=== PATIENT | female | born 1940 | race Caucasian/White ===

== ENCOUNTER 2019-10-19 20:00 | Inpatient (IN) ==
[2019-10-19] MEDS ORDERED: SODIUM CHLORIDE 0.9% 500 ML IV STA (20:34)
[2019-10-19] MEDS ORDERED: MoRPHine SULFATE 2 MG/ML CARP ONE (20:42)
[2019-10-19] MEDS ORDERED: ONDANSETRON INJ 2 MG/ML 2 ML VIAL ONE (20:46)
[2019-10-19] MEDS ORDERED: MoRPHine SULFATE 2 MG/ML CARP IV STA (20:47)
[2019-10-19] MEDS ORDERED: ONDANSETRON INJ 2 MG/ML 2 ML VIAL IV STA (20:47)
[2019-10-19 20:48] LABS: Hematocrit (blood only) 39.7 % (37-47); Hemoglobin 13.6 g/dL (12.0-16.0); Mean Corpuscular Hemoglobin 31.4 pg (25-34); Mean Corpuscular Hgb Conc 34.3 g/dL (32-36); Mean Corpuscular Volume 91.7 fL (80-100); Mean Platelet Volume 9.4 fL (7.4-10.4); Platelet Count 226 K/uL (130-400); RDW Coefficient of Variation 12.6 % (11.5-14.5); RDW Standard Deviation 42.6 fL (36.4-46.3); Red Blood Count 4.33 M/uL (4.2-5.4); White Blood Count 10.57 K/uL (4.8-10.8)
[2019-10-19 21:12] LABS: Appearance Urine Clear (Clear); Bacteria Urine Automated Negative (Negative); Bilirubin Urine Negative (Negative); Blood Urine Negative (Negative); Cast Urine Automated 0 /lpf (0-5); Color Urine Yellow; Glucose Urine UA Negative (Negative); Ketones Urine 1+ (Negative); Leukocyte Esterase Urine Trace (Negative); Nitrite Urine Negative (Negative); Protein Urine Negative (Negative); RBC Urine Automated 0-4 /hpf (0-4); Specific Gravity Urine 1.015 (1.000-1.030); Urobilinogen Urine Negative (Negative); pH Urine 7.5 (4.5-7.5)
[2019-10-19 21:13] LABS: BUN Creatinine Ratio 17.3 (10-20); Calcium 9.6 mg/dl (8.5-10.1); Creatinine Clr Calc Pharmacy 54.5 ml/min; Est GFR (African American) 80.6; Est GFR (Non-African American) 69.6; Potassium 3.3 mmol/L (3.5-5.1)
[2019-10-19] MEDS ORDERED: SODIUM CHLORIDE 0.9% 1000ML 1,000 ML IV ONE (21:13)
[2019-10-19] MEDS: HYDROmorphone INJ 0.5 MG/0.5 ML SYR IV PRN ×3 (21:15→23:14)
--- NOTE | 2019-10-19 21:44 | CT Scan Report ---
CT SCAN OF THE ABDOMEN AND PELVIS WITHOUT IV CONTRAST CLINICAL HISTORY: Generalized abdominal pain. Vomiting. COMPARISON STUDY: No priors. TECHNIQUE: CT scan of the abdomen and pelvis is performed from the lung bases to the proximal femora. Images are reviewed in the axial, sagittal, and coronal planes. IV contrast was not administered for this examination as per the referring clinician. Note that the examination was performed in suboptim al fashion without oral and IV contrast. A dose lowering technique was utilized adhering to the princ i[place] of AVERY. CT DOSE: 365.59 mGy.cm FINDINGS: Lung bases: The heart is top normal in size and without pericardial effusion. There is a small hiatal hernia. Scarring/atelectasis is noted at the lung bases. No airspace consolidation or pleural effusi on is identified. There are scattered calcified granulomas. Liver: The unenhanced liver is normal in size, contour, and attenuation. There is mild intrahepatic b iliary ductal dilatation. Gallbladder: The gallbladder is markedly distended. There is gallbladder wall thickening and mild per icholecystic stranding. The common bile duct is dilated to the head of the pancreas and measures up t o 1.6 cm. Spleen: Normal in size and attenuation. There are numerous calcified splenic granulomas. 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 Pancreas: The unenhanced pancreas is grossly unremarkable. Adrenal glands: Unremarkable. Kidneys: The unenhanced kidneys demonstrate mild cortical atrophy and are without hydronephrosis. The re are least 2 nonobstructing left renal calculi measuring up to 6 mm. No right renal calculi are see n. There is no evidence of contour deforming renal mass lesion. Abdominal vasculature: There is advanced atherosclerotic calcification and ectasia of the abdominal a kika. Bowel: There is moderate colonic diverticulosis without CT evidence of acute diverticulitis. Fecal re tention is seen throughout the colon. No bowel obstruction is identified. There are duodenal divertic semaj. The appendix is not identified and reported surgically absent. Peritoneum: There is no intraperitoneal free air or abdominal ascites. Lymphadenopathy: None. Pelvic viscera: There is a small focus of gas within the bladder lumen. The bladder is distended but otherwise normal in appearance. The uterus and adnexa are normal as visualized. Skeletal structures: The skeletal structures are osteopenic. Mild to moderate lumbosacral spondylosis is observed. No lytic or blastic lesions are seen. IMPRESSION: 1. Suboptimal examination without oral and IV contrast. 2. Findings are highly concerning for acute cholecystitis. If clinically warranted right upper quadra nt ultrasound would be confirmatory. 3. There is intra and extrahepatic biliary ductal dilatation. 4. A small focus of gas within the bladder lumen may be related to instrumentation. Correlation with clinical findings and urinalysis will be required. 5. Moderate colonic diverticulosis without CT evidence of acute diverticulitis. 6. Left-sided nephrolithiasis. 7. Additional findings as above. ACT 112: Negative or not required by law. Electronically signed by: Cody Mcneill M.D. 10/19/2019 9:43 PM
[2019-10-19 22:01] LABS: Albumin Level 4.2 gm/dl (3.4-5.0)
[2019-10-19 22:04] LABS: Bilirubin Direct 0.7 mg/dl (0-0.2); Bilirubin,Total 1.2 mg/dl (0.2-1)
[2019-10-19] MEDS ORDERED: cefOXitin 2,000 MG/60 ML BAG IV STA (22:50)
--- NOTE | 2019-10-19 22:53 | Ultrasound Report ---
ULTRASOUND RIGHT UPPER QUADRANT ABDOMEN CLINICAL HISTORY: Generalized abdominal pain. Abnormal gallbladder seen by CT. COMPARISON STUDY: Abdominal CT performed the same day 10/19/2019. TECHNIQUE: Real-time, grayscale, and color flow sonography of the right upper quadrant of the abdomen was performed. Images are reviewed in the transverse and longitudinal planes. FINDINGS: Liver: The liver is normal in size and echotexture. There is intrahepatic biliary ductal dilatation. The main portal vein is patent. Gallbladder: The gallbladder is distended. The gallbladder wall is thickened and edematous measuring up to 7 mm and there is trace pericholecystic fluid. A sonographic Wilks's sign is likely present al though difficult assessed due to analgesia. Sludge is noted. No definite shadowing gallstones are chele ntified. The common bile duct is distended measuring up to 1.3 cm in diameter. No intraluminal fillin g defects are clearly identified. Pancreas: Visualized portions of the pancreatic head and body are normal in appearance. The splenic v ein is patent. Right kidney: Survey images of the right kidney demonstrate mild cortical atrophy. There is no hydron ephrosis. Ascites: None. IMPRESSION: 1. Sonographic findings are consistent with acute cholecystitis. This may be acalculous. Surgical con sultation is advised. 2. There is intra and extrahepatic biliary ductal dilatation. 3. The pancreatic duct is normal in caliber. ACT 112: Negative or not required by law. Electronically signed by: Cody Mcneill M.D. 10/19/2019 10:52 PM
--- NOTE | 2019-10-19 23:48 | History & Physical Report ---
Date of Service October 19, 2019 Assessment & Plan (1) Acute cholecystitis: Admit PCU IV Mefoxin given in the ED I will continue with IV Zosyn MRCP Surgery and GI consults NSS 20KCL @ 100 Pain and nausea control NPO Pepcid IV 20mg Q12 (2) Hypokalemia: 10meq K-rider x1 Then NSS with potassium overnight (3) HTN (hypertension): Likely secondary to pain Prn IV hydralazine Patient appeared anxious as well thus I ordered prn Ativan History of Present Illness 79 y/o female presented to the ED with acute onset of right upper and lower quadrant pain radiating to right back with associated N/V at 1700 this evening. She declines having F/C, chest pain, dysuria, hematemesis, SOB, or rigors. Patient had kidney stones in the past and felt this was the cuase of her pain. Primary Care Provider: Daniella Gill Allergies Allergy/AdvReac Type Severity Reaction Status Date / Time nitrofurantoin Allergy Severe Nausea Unverified 10/19/19 21:56 [From Macrobid] Home Medications Home Medications Medication Instructions Recorded Confirmed Type aspirin 500 mg PO Q6H PRN 10/19/19 10/19/19 History cholecalciferol (vitamin D3) 2,000 unit PO QAM 10/19/19 10/19/19 History [Vitamin D3] Past Med/Surg History Medical History History of kidney stones Luteal cystic ovary disease Family History Other No significant family history Social History Preferred Language: Armenian Feels Safe at Home: Yes Smoking Status: Never smoker Review of Systems Review of Systems: Constitutional- no fever; no weight loss Eyes- no acute visual changes ENT- no sinus drainage; no pharyngitis Pulmonary- no cough, no wheezing, no shortness of breath Cardiac- no chest pain, no palpitations, no orthopnea, no dependent edema GI- As in HPI - no dysuria, no hematuria Musculoskeletal- no arthralgias, no myalgias Derm- no rashes, no new skin lesions. Hematologic- no unusual bruising, no unusual bleeding Lymphatics- no adenopathy Endocrine- no polyuria or polydipsia; no heat or cold intolerance Neuro- no headaches, no focal neurologic symptoms Psych- no anxiety, no depression Physical Exam Physical Exam: General- adult female in mod distress from right upper quadrant pain. Nurse giving IV Dilaudid just now. Head- atraumatic Eyes- PERRL, EOMI, anicteric ENT- oropharynx clear Neck- supple, no JVD, no adenopathy, no thyromegaly. Lungs- CTA b/l no R/R/W. Heart- regular rhythm; no murmur, no gallop, no rub appreciated Abdomen- Tenderness to palpation RUQ, + BS, no rebound. Extremities- no pretibial edema, no calf tenderness; peripheral pulses intact Neuro- alert, oriented x 3; PERRL, EOMI; licensing analyst II-XII grossly intact, non-focal. Skin- warm & dry Results & Data Vital Signs (Past 12 Hours) Vital Signs Temp Pulse Resp BP Pulse Ox 10/19/19 23:20 83 19 167/95 H 94 10/19/19 22:50 98 10/19/19 22:49 70 17 185/89 H 99 10/19/19 22:00 74 16 181/99 H 93 10/19/19 21:41 69 22 175/92 H 98 10/19/19 21:38 91 H 12 10/19/19 21:10 73 19 173/99 H 97 10/19/19 21:01 68 30 H 98 10/19/19 21:00 69 28 H 184/96 H 98 10/19/19 20:53 64 21 193/101 H 98 10/19/19 20:51 67 22 97 10/19/19 20:49 71 17 202/105 H 96 10/19/19 20:02 36.6 C 61 16 180/90 H 96 Laboratory Results Laboratory Results WBC 10.57 K/uL (4.8-10.8) 10/19/19 20:29 RBC 4.33 M/uL (4.2-5.4) 10/19/19 20:29 Hgb 13.6 g/dL (12.0-16.0) 10/19/19 20:29 Hct 39.7 % (37-47) 10/19/19 20:29 MCV 91.7 fL (80-100) 10/19/19 20: MCH 31.4 pg (25-34) 10/19/19: MCHC 34.3 g/dL (32-36) 10/19/19: RDW Std Deviation 42.6 fL (36.4-46.3) 10/19/19 RDW Coeff of Vasquez 12.6 % (11.5-14.5) 10/19/19 Plt Count 226 K/uL (130-400) 10/19/19 MPV 9.4 fL (7.4-10.4) 10/19/19: Sodium 138 mmol/L (136-145) 10/19/19 Potassium 3.3 mmol/L (3.5-5.1) L 10/19/19 Chloride 101 mmol/L (98-107) 10/19/19: Carbon Dioxide 29 mmol/L (21-32) 10/19/19: Anion Gap 8.0 (3-11) 10/19/19 BUN 14 mg/dl (7-18) 10/19/19: Creatinine 0.81 mg/dl (0.6-1.2) 10/19/19 Est Cr Clr Drug Dosing 54.5 ml/min 10/19/19: Est GFR ( Amer) 80.6 10/19/19: Est GFR (Non-Af Amer) 69.6 10/19/19: BUN/Creatinine Ratio 17.3 (10-20) 10/19/19: Glucose 193 mg/dl (70-99) H 10/19/19: Calcium 9.6 mg/dl (8.5-10.1) 10/19/19: Total Bilirubin 1.2 mg/dl (0.2-1) H 10/19/19: Total Bilirubin Cancelled 10/19/19: Direct Bilirubin 0.7 mg/dl (0-0.2) H 10/19/19: Direct Bilirubin Cancelled 10/19/19: AST 153 U/L (15-37) H 10/19/19: AST Cancelled 10/19/19 20: ALT 69 U/L (12-78) 10/19/19 20: ALT Cancelled 10/19/19 20: Alkaline Phosphatase 133 U/L (45-117) H 10/19/19 20: Alkaline Phosphatase Cancelled 10/19/19 20: Total Protein 8.0 gm/dl (6.4-8.2) 10/19/19: Total Protein Cancelled 10/19/19 20: Albumin 4.2 gm/dl (3.4-5.0) 10/19/19 20: Albumin Cancelled 10/19/19 20: Lipase 250 U/L (73-393) 10/19/19 Lipase Cancelled 10/19/19 20: Urine Color Yellow 10/19/19 20: Urine Appearance Clear (Clear) 10/19/19: Urine pH 7.5 (4.5-7.5) 10/19/19: Ur Specific [place] 1.015 (1.000-1.030) 10/19/19 20: Urine Protein Negative (Negative) 10/19/19 20: Urine Glucose (UA) Negative (Negative) 10/19/19 Urine Ketones 1+ (Negative) H 10/19/19 Urine Blood Negative (Negative) 10/19/19 20: Urine Nitrite Negative (Negative) 10/19/19: Urine Bilirubin Negative (Negative) 10/19/19: Urine Urobilinogen Negative (Negative) 10/19/19: Ur Leukocyte Esterase Trace (Negative) H 10/19/19 20: Urine WBC (Auto) 5-10 /hpf (0-5) H 10/19/19 20: Urine RBC (Auto) 0-4 /hpf (0-4) 10/19/19 20: U Hyaline Cast (Auto) 0 /lpf (0-5) 10/19/19 20: U Epithel Cells (Auto) 10-20 /lpf (0-5) H 10/19/19 20: Urine Bacteria (Auto) Negative (Negative) 10/19/19 20: Diagnostic Findings [facility], [place] [phone] CT Scan Report Patient: CINTIA CHOPRAAdmit Date: 10/19/19 MR#: [id number]: [id number] [place] [address] Acct ID:[id number]: Date: 1940[facility] Zip: [place] [id number] Age: 79Location: ED Sex: F Room/Bed: Att Phy:Diagnosis: VOMITING, ABD PAIN, LOWER BACK PAIN Rama Phy: Kavin Gill D.O.Service Date: 10/19/19 [facility] Phy:Interpreting Phy: Cody Mcneill MD Admit Phy: Ordering Phy: Kavin Chávez MD cc: ~ CT SCAN OF THE ABDOMEN AND PELVIS WITHOUT IV CONTRAST CLINICAL HISTORY: Generalized abdominal pain. Vomiting. COMPARISON STUDY: No priors. TECHNIQUE: CT scan of the abdomen and pelvis is performed from the lung bases to the proximal femora. Images are reviewed in the axial, sagittal, and coronal planes. IV contrast was not administered for this examination as per the referring clinician. Note that the examination was performed in suboptimal fashion without oral and IV contrast. A dose lowering technique was utilized adhering to the principles of ALARA. CT DOSE: 365.59 mGy.cm FINDINGS: Lung bases: The heart is top normal in size and without pericardial effusion. There is a small hiatal hernia. Scarring/atelectasis is noted at the lung bases. No airspace consolidation or pleural effusion is identified. There are scattered calcified granulomas. Liver: The unenhanced liver is normal in size, contour, and attenuation. There is mild intrahepatic biliary ductal dilatation. Gallbladder: The gallbladder is markedly distended. There is gallbladder wall thickening and mild pericholecystic stranding. The common bile duct is dilated to the head of the pancreas and measures up to 1.6 cm. Spleen: Normal in size and attenuation. There are numerous calcified splenic granulomas. 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 Pancreas: The unenhanced pancreas is grossly unremarkable. Adrenal glands: Unremarkable. Kidneys: The unenhanced kidneys demonstrate mild cortical atrophy and are without hydronephrosis. There are least 2 nonobstructing left renal calculi measuring up to 6 mm. No right renal calculi are seen. There is no evidence of contour deforming renal mass lesion. Abdominal vasculature: There is advanced atherosclerotic calcification and ectasia of the abdominal aorta. Bowel: There is moderate colonic diverticulosis without CT evidence of acute diverticulitis. Fecal retention is seen throughout the colon. No bowel obstruction is identified. There are duodenal diverticula. The appendix is not identified and reported surgically absent. Peritoneum: There is no intraperitoneal free air or abdominal ascites. Lymphadenopathy: None. Pelvic viscera: There is a small focus of gas within the bladder lumen. The bladder is distended but otherwise normal in appearance. The uterus and adnexa are normal as visualized. Skeletal structures: The skeletal structures are osteopenic. Mild to moderate lumbosacral spondylosis is observed. No lytic or blastic lesions are seen. IMPRESSION: 1. Suboptimal examination without oral and IV contrast. 2. Findings are highly concerning for acute cholecystitis. If clinically warranted right upper quadrant ultrasound would be confirmatory. 3. There is intra and extrahepatic biliary ductal dilatation. 4. A small focus of gas within the bladder lumen may be related to instrumentation. Correlation with clinical findings and urinalysis will be required. 5. Moderate colonic diverticulosis without CT evidence of acute diverticulitis. 6. Left-sided nephrolithiasis. 7. Additional findings as above. ACT 112: Negative or not required by law. Electronically signed by: Cody Mcneill M.D. 10/19/2019 9:43 PM Dictated: 10/19/192134 Transcribed: 10/19/192134 [place], [place] [phone] Ultrasound Report Patient: CINTIA CHOPRAAdmit Date: 10/19/19 MR#: [id number]: [address] [place] [address] Acct ID:[id number]: Date: [address] [place] [address] Zip: [place] [address] Age: 79Location: ED Sex: F Room/Bed: Att Phy:Diagnosis: VOMITING, ABD PAIN, LOWER BACK PAIN Rama Phy: Daniella Gill., DOService Date: 10/19/19 Fam Phy:Interpreting Phy: Cody Mcneill MD Admit Phy: Ordering Phy: Kavin Chávez MD cc: ~ ULTRASOUND RIGHT UPPER QUADRANT ABDOMEN CLINICAL HISTORY: Generalized abdominal pain. Abnormal gallbladder seen by CT. COMPARISON STUDY: Abdominal CT performed the same day 10/19/2019. TECHNIQUE: Real-time, grayscale, and color flow sonography of the right upper quadrant of the abdomen was performed. Images are reviewed in the transverse and longitudinal planes. FINDINGS: Liver: The liver is normal in size and echotexture. There is intrahepatic biliary ductal dilatation. The main portal vein is patent. Gallbladder: The gallbladder is distended. The gallbladder wall is thickened and edematous measuring up to 7 mm and there is trace pericholecystic fluid. A sonographic Wilks's sign is likely present although difficult assessed due to analgesia. Sludge is noted. No definite shadowing gallstones are identified. The common bile duct is distended measuring up to 1.3 cm in diameter. No intraluminal filling defects are clearly identified. Pancreas: Visualized portions of the pancreatic head and body are normal in appearance. The splenic vein is patent. Right kidney: Survey images of the right kidney demonstrate mild cortical atrophy. There is no hydronephrosis. Ascites: None. IMPRESSION: 1. Sonographic findings are consistent with acute cholecystitis. This may be acalculous. Surgical consultation is advised. 2. There is intra and extrahepatic biliary ductal dilatation. 3. The pancreatic duct is normal in caliber. ACT 112: Negative or not required by law. Electronically signed by: Cody Mcneill M.D. 10/19/2019 10:52 PM Dictated: 10/19/192247 Transcribed: 10/19/192247 Code Status & VTE Plan VTE Prophylaxis Plan VTE Prophylaxis will be ordered: Yes PG Care Time/CCT Total # of Minutes Spent Total Time Spent: 60 Total Time Spent with Patient: Total time spent is greater than 50% in coordination of care (as documented) at patient's floor/unit and/or counseling patient: Coding Level of Care Code 15285 Initial Inpt Care Lvl 3 Diagnoses Acute cholecystitis K81.0 Hypokalemia E87.6 HTN (hypertension) I10
[2019-10-20] MEDS: HYDROmorphone INJ 0.5 MG/0.5 ML SYR IV PRN ×3 (00:12→06:09)
[2019-10-20] MEDS ORDERED: LORazepam 0.5 MG/1 ML VIAL IV PRN (00:42)
[2019-10-20] MEDS ORDERED: POTASSIUM CHLORIDE / WTR 10 MEQ/100 ML PLCT IV ONE (00:42)
[2019-10-20] MEDS ORDERED: PIPERACILL/TAZOBAC CONSULT ACTIVE PRN (00:42)
[2019-10-20] MEDS ORDERED: HYDROmorphone INJ 1 MG/ML SYRINGE IV PRN ×2 (00:42→16:00)
[2019-10-20] MEDS ORDERED: HydrALAZINE HCL 20 MG/ML VIAL IV PRN (00:42)
[2019-10-20] MEDS ORDERED: ONDANSETRON INJ 2 MG/ML 2 ML VIAL IV PRN ×2 (00:42→16:00)
--- NOTE | 2019-10-20 00:45 | Emergency Department Note ---
Entered by Lady Frias acting as a scribe for Kavin Chávez MD ED Provider Note CHIEF COMPLAINT: right flank pain HISTORY OF PRESENT ILLNESS: The patient is a 79 year old F who presents to the Emergency Room with complaints of worsening right flank left that started this morning. She notes that her flank pain started at 3am, this morning. She states that her pain radiates to her entire abdomen. She notes that she started to vomit, 4 hours ago. She adds that she is currently vomiting bile. She states that she has a history of a ruptured corpus luteal cyst and a kidney stone. She adds that her kidney stone was 2 years ago. She notes that she is currently taking Vitamin D3 daily. She adds that she regularly sees her PCP, Dr. Glil, in [place], [place]. Pt denies LOC, headache, fevers, chills, diaphoresis, visual changes, neck pain, chest pain, breathing difficulties, melena, hematochezia, urinary symptoms, numbness, weakness, lymphadenopathy, rash, or other complaints. REVIEW OF SYSTEMS: See HPI for pertinent positives and negatives. A total of ten systems were reviewed and were otherwise negative. PMHx/PSHx: ruptured corpus luteal cyst and kidney stone SOCIAL HISTORY: Patient lives at home. PHYSICAL EXAM: GENERAL: Awake, alert, uncomfortable-appearing, in no distress HENT: Normocephalic, atraumatic. Oropharynx unremarkable. EYES: PERRL. Normal conjunctiva. Sclera non-icteric. NECK: Inspection normal. Non-tender. Supple. No nuchal rigidity. FROM. No masses. RESPIRATORY: Clear to auscultation. No wheezes. No rales. Normal respiratory effort. CARDIAC: Normal rate. Normal rhythm. No murmurs. No rubs. Extremities warm and well perfused. Pulses equal. No JVD. GI: Soft, non-distended. Generalized tenderness to palpation. No rebound or guarding. No masses. RECTAL: Deferred. MUSCULOSKELETAL: Atraumatic. Chest examination reveals no tenderness. The back is symmetrical on inspection without obvious abnormality. There is left CVA tenderness to palpation. No joint edema. LOWER EXTREMITIES: Calves are equal size bilaterally and non-tender. No edema. No discoloration. NEURO: Normal sensorium. No sensory or motor deficits noted. SKIN: No rash or jaundice noted. EMERGENCY DEPARTMENT COURSE: 2111: The patient was evaluated in room B12B, and a complete history and physical examination were performed. 2153: I re-checked the patient. On repeat abdominal exam, the patient is still diffusely tender. 2251: I reviewed the patient's case with Dr. Vogt, [facility] Hospitalist. He will evaluate the patient for further management. 2254: I updated the patient on the plan for hospitalization. MEDICAL DECISION MAKING: Prior records in the EMR. Triage Nursing notes reviewed and agree them. Additional history obtained from patient's . The patient's history was concerning for abdominal pain. Differential diagnosis: Etiologies such as biliary pathology,appendicitis, diverticulitis, PUD, UTI, pancreatitis, obstruction, mesenteric ischemia, aortic pathology, infections, inflammatory bowel disease, renal colic, as well as others were entertained. Physical examination findings: As above. ER treatment provided: IV Zofran IV normal saline IV morphine IV Dilaudid On reassessment the patient felt better. IV Mefoxin Diagnostics interpreted by me: The labs revealed an unremarkable CBC. Chemistry panel revealed subtle hypokalemia and hyperglycemia. LFTs were concerning as they were elevated a nonobstructive pattern. Imaging studies: CT scan of the abdomen pelvis was concerning for cholecystitis. Ultrasound imaging was recommended by radiology. This was performed and was concerning for acute cholecystitis. Consultation: A consultation was placed with the not any hospitalist. The case was discussed and diagnostics were reviewed. The patient was evaluated in the ER for further treatment. IMPRESSION: acute cholecystitis Generalized abdominal pain Elevated LFTs PLAN: Admitted as inpatient. The scribe's documentation has been prepared under my direction and personally reviewed by me in its entirety. I confirm that the note above accurately r eflects all work, treatment, procedures, and medical decision making performed by me. Impression & Plan Acute cholecystitis Past Med/Surg History Medical History History of kidney stones Luteal cystic ovary disease Family History Other No significant family history Social History Preferred Language: Thai Feels Safe at Home: Yes Smoking Status: Never smoker Results & Data Vital Signs Vital Signs - 24 hr 10/19/19 20:02 10/19/19 20:49 10/19/19 20:51 Temperature 36.6 C Temperature Source Oral Pulse Rate 61 71 67 Pulse Rate from SpO2 Sensor 70 68 Respiratory Rate 16 17 22 Respiratory Effort / Characteristics Non-Labored Spontaneous Respiratory Depth Normal Respiratory Pattern Regular Blood Pressure 180/90 H 202/105 H Blood Pressure Mean 120 133 Blood Pressure Position Sitting Pulse Oximetry 96 96 97 Oxygen Delivery Method Room Air Oxygen Flow Rate Sepsis Recent Fever Within 48 Hours No Sepsis Action Taken by Nursing No Action Required 10/19/19 20:53 10/19/19 21:00 10/19/19 21:01 Temperature Temperature Source Pulse Rate 64 69 68 Pulse Rate from SpO2 Sensor 64 69 69 Respiratory Rate 21 28 H 30 H Respiratory Effort / Characteristics Respiratory Depth Respiratory Pattern Blood Pressure 193/101 H 184/96 H Blood Pressure Mean 131 132 Blood Pressure Position Pulse Oximetry 98 98 98 Oxygen Delivery Method Oxygen Flow Rate Sepsis Recent Fever Within 48 Hours Sepsis Action Taken by Nursing 10/19/19 21:10 10/19/19 21:38 10/19/19 21:41 Temperature Temperature Source Pulse Rate 73 91 H 69 Pulse Rate from SpO2 Sensor 72 69 Respiratory Rate 19 12 22 Respiratory Effort / Characteristics Respiratory Depth Respiratory Pattern Blood Pressure 173/99 H 175/92 H Blood Pressure Mean 129 129 Blood Pressure Position Pulse Oximetry 97 98 Oxygen Delivery Method Oxygen Flow Rate Sepsis Recent Fever Within 48 Hours Sepsis Action Taken by Nursing 10/19/19 22:00 10/19/19 22:49 10/19/19 22:50 Temperature Temperature Source Pulse Rate 74 70 Pulse Rate from SpO2 Sensor 76 71 Respiratory Rate 16 17 Respiratory Effort / Characteristics Respiratory Depth Respiratory Pattern Blood Pressure 181/99 H 185/89 H Blood Pressure Mean 105 113 Blood Pressure Position Pulse Oximetry 93 99 98 Oxygen Delivery Method Nasal Cannula Oxygen Flow Rate 2 Sepsis Recent Fever Within 48 Hours Sepsis Action Taken by Nursing 10/19/19 23:20 Temperature Temperature Source Pulse Rate 83 Pulse Rate from SpO2 Sensor 85 Respiratory Rate 19 Respiratory Effort / Characteristics Respiratory Depth Respiratory Pattern Blood Pressure 167/95 H Blood Pressure Mean 142 Blood Pressure Position Pulse Oximetry 94 Oxygen Delivery Method Oxygen Flow Rate Sepsis Recent Fever Within 48 Hours Sepsis Action Taken by Detention Medications Current Medication List: was personally reviewed by me Laboratory Data Attestation: I reviewed the patient's lab results. Result diagrams: 10/19/19 20:29 10/19/19 20:29 Lab Results 10/19/19 10/19/19 10/19/19 Range/Units 20:29 20:29 20:29 WBC 10.57 (4.8-10.8) K/uL RBC 4.33 (4.2-5.4) M/uL Hgb 13.6 (12.0-16.0) g/dL Hct 39.7 (37-47) % MCV 91.7 (80-100) fL MCH 31.4 (25-34) pg MCHC 34.3 (32-36) g/dL RDW Std Deviation 42.6 (36.4-46.3) fL RDW Coeff of Vasquez 12.6 (11.5-14.5) % Plt Count 226 (130-400) K/uL MPV 9.4 (7.4-10.4) fL Sodium 138 (136-145) mmol/L Potassium 3.3 L (3.5-5.1) mmol/L Chloride 101 (98-107) mmol/L Carbon Dioxide 29 (21-32) mmol/L Anion Gap 8.0 (3-11) BUN 14 (7-18) mg/dl Creatinine 0.81 (0.6-1.2) mg/dl Est Cr Clr Drug Dosing 54.5 ml/min Est GFR ( Amer) 80.6 Est GFR (Non-Af Amer) 69.6 BUN/Creatinine Ratio 17.3 (10-20) Glucose 193 H (70-99) mg/dl Calcium 9.6 (8.5-10.1) mg/dl Total Bilirubin 1.2 H (0.2-1) mg/dl Direct Bilirubin 0.7 H (0-0.2) mg/dl AST 153 H (15-37) U/L ALT 69 (12-78) U/L Alkaline Phosphatase 133 H (45-117) U/L Total Protein 8.0 (6.4-8.2) gm/dl Albumin 4.2 (3.4-5.0) gm/dl Lipase 250 (73-393) U/L Urine Color Yellow Urine Appearance Clear (Clear) Urine pH 7.5 (4.5-7.5) Ur Specific [place] 1.015 (1.000-1.030) Urine Protein Negative (Negative) Urine Glucose (UA) Negative (Negative) Urine Ketones 1+ H (Negative) Urine Blood Negative (Negative) Urine Nitrite Negative (Negative) Urine Bilirubin Negative (Negative) Urine Urobilinogen Negative (Negative) Ur Leukocyte Esterase Trace H (Negative) Urine WBC (Auto) 5-10 H (0-5) /hpf Urine RBC (Auto) 0-4 (0-4) /hpf U Hyaline Cast (Auto) 0 (0-5) /lpf U Epithel Cells (Auto) 10-20 H (0-5) /lpf Urine Bacteria (Auto) Negative (Negative) 10/19/19 Range/Units 20:29 WBC (4.8-10.8) K/uL RBC (4.2-5.4) M/uL Hgb (12.0-16.0) g/dL Hct (37-47) % MCV (80-100) fL MCH (25-34) pg MCHC (32-36) g/dL RDW Std Deviation (36.4-46.3) fL RDW Coeff of Vasquez (11.5-14.5) % Plt Count (130-400) K/uL MPV (7.4-10.4) fL Sodium (136-145) mmol/L Potassium (3.5-5.1) mmol/L Chloride (98-107) mmol/L Carbon Dioxide (21-32) mmol/L Anion Gap (3-11) BUN (7-18) mg/dl Creatinine (0.6-1.2) mg/dl Est Cr Clr Drug Dosing ml/min Est GFR ( Amer) Est GFR (Non-Af Amer) BUN/Creatinine Ratio (10-20) Glucose (70-99) mg/dl Calcium (8.5-10.1) mg/dl Total Bilirubin Cancelled (0.2-1) mg/dl Direct Bilirubin Cancelled (0-0.2) mg/dl AST Cancelled (15-37) U/L ALT Cancelled (12-78) U/L Alkaline Phosphatase Cancelled (45-117) U/L Total Protein Cancelled (6.4-8.2) gm/dl Albumin Cancelled (3.4-5.0) gm/dl Lipase Cancelled (73-393) U/L Urine Color Urine Appearance (Clear) Urine pH (4.5-7.5) Ur Specific [place] (1.000-1.030) Urine Protein (Negative) Urine Glucose (UA) (Negative) Urine Ketones (Negative) Urine Blood (Negative) Urine Nitrite (Negative) Urine Bilirubin (Negative) Urine Urobilinogen (Negative) Ur Leukocyte Esterase (Negative) Urine WBC (Auto) (0-5) /hpf Urine RBC (Auto) (0-4) /hpf U Hyaline Cast (Auto) (0-5) /lpf U Epithel Cells (Auto) (0-5) /lpf Urine Bacteria (Auto) (Negative) Administered Medications Discontinued Medications Hydromorphone HCl (Dilaudid) 0.5 mg IV Q15M PRN PRN Reason: Pain Stop: 11/02/19 21:12 Last Admin: 10/20/19 00:12 Dose: 0.5 mg Documented by: [id number] Admin: 10/19/19 23:14 Dose: 0.5 mg Documented by: [id number] Admin: 10/19/19 21:39 Dose: 0.5 mg Documented by: [id number] Admin: 10/19/19 21:15 Dose: 0.5 mg Documented by: [id number] Sodium Chloride (Nss) 500 mls @ 999 mls/hr IV .Q31M STA Stop: 10/19/19 21:04 Last Infusion: 10/19/19 21:11 Dose: 0 mls/hr Documented by: [id number] Admin: 10/19/19 20:43 Dose: 999 mls/hr Documented by: [id number] Sodium Chloride (Nss 1000ml) 1,000 mls @ 999 mls/hr IV .Q1H1M ONE Stop: 10/19/19 22:13 Last Infusion: 10/19/19 22:18 Dose: 0 mls/hr Documented by: [id number] Admin: 10/19/19 21:15 Dose: 999 mls/hr Documented by: [id number] Cefoxitin Sodium (Mefoxin) 2,000 mg in 60 mls @ 100 mls/hr IV NOW STA Stop: 10/19/19 23:25 Last Infusion: 10/19/19 23:33 Dose: 0 mls/hr Documented by: [id number] Admin: 10/19/19 22:58 Dose: 100 mls/hr Documented by: [id number] Morphine Sulfate (Morphine Sulfate) Confirm Administered Dose 2 mg .ROUTE .STK- MED ONE Stop: 10/19/19 20:43 Last Admin: 10/19/19 20:43 Dose: 2 mg Documented by: [id number] Morphine Sulfate (Morphine Sulfate) 2 mg IV NOW STA Stop: 10/19/19 20:48 Last Admin: 10/19/19 20:50 Dose: Not Given Documented by: [id number] Ondansetron HCl (Zofran) Confirm Administered Dose 4 mg .ROUTE .STK-MED ONE Stop: 10/19/19 20:47 Last Admin: 10/19/19 20:47 Dose: 4 mg Documented by: [id number] Ondansetron HCl (Zofran) 4 mg IV NOW STA Stop: 10/19/19 20:48 Last Admin: 10/19/19 20:50 Dose: Not Given Documented by: [id number] Imaging Data Radiologist's Impression: Radiology results as stated below per my review and the radiologist's interpretation: CT SCAN OF THE ABDOMEN AND PELVIS WITHOUT IV CONTRAST CLINICAL HISTORY: Generalized abdominal pain. Vomiting. COMPARISON STUDY: No priors. TECHNIQUE: CT scan of the abdomen and pelvis is performed from the lung bases to the proximal femora. Images are reviewed in the axial, sagittal, and coronal planes. IV contrast was not administered for this examination as per the referring clinician. Note that the examination was performed in suboptimal fashion without oral and IV contrast. A dose lowering technique was utilized adhering to the principles of ALARA. CT DOSE: 365.59 mGy.cm FINDINGS: Lung bases: The heart is top normal in size and without pericardial effusion. There is a small hiatal hernia. Scarring/atelectasis is noted at the lung bases. No airspace consolidation or pleural effusion is identified. There are scattered calcified granulomas. Liver: The unenhanced liver is normal in size, contour, and attenuation. There is mild intrahepatic biliary ductal dilatation. Gallbladder: The gallbladder is markedly distended. There is gallbladder wall thickening and mild pericholecystic stranding. The common bile duct is dilated to the head of the pancreas and measures up to 1.6 cm. Spleen: Normal in size and attenuation. There are numerous calcified splenic granulomas. 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 Pancreas: The unenhanced pancreas is grossly unremarkable. Adrenal glands: Unremarkable. Kidneys: The unenhanced kidneys demonstrate mild cortical atrophy and are wi thout hydronephrosis. There are least 2 nonobstructing left renal calculi measuring up to 6 mm. No right renal calculi are seen. There is no evidence of contour deforming renal mass lesion. Abdominal vasculature: There is advanced atherosclerotic calcification and ectasia of the abdominal aorta. Bowel: There is moderate colonic diverticulosis without CT evidence of acute diverticulitis. Fecal retention is seen throughout the colon. No bowel obstruction is identified. There are duodenal diverticula. The appendix is not identified and reported surgically absent. Peritoneum: There is no intraperitoneal free air or abdominal ascites. Lymphadenopathy: None. Pelvic viscera: There is a small focus of gas within the bladder lumen. The bladder is distended but otherwise normal in appearance. The uterus and adnexa are normal as visualized. Skeletal structures: The skeletal structures are osteopenic. Mild to moderate lumbosacral spondylosis is observed. No lytic or blastic lesions are seen. IMPRESSION: 1. Suboptimal examination without oral and IV contrast. 2. Findings are highly concerning for acute cholecystitis. If clinically warranted right upper quadrant ultrasound would be confirmatory. 3. There is intra and extrahepatic biliary ductal dilatation. 4. A small focus of gas within the bladder lumen may be related to instrumentation. Correlation with clinical findings and urinalysis will be required. 5. Moderate colonic diverticulosis without CT evidence of acute diverticulitis. 6. Left-sided nephrolithiasis. 7. Additional findings as above. ACT 112: Negative or not required by law. Electronically signed by: Cody Mcneill M.D. 10/19/2019 9:43 PM ULTRASOUND RIGHT UPPER QUADRANT ABDOMEN CLINICAL HISTORY: Generalized abdominal pain. Abnormal gallbladder seen by CT. COMPARISON STUDY: Abdominal CT performed the same day 10/19/2019. TECHNIQUE: Real-time, grayscale, and color flow sonography of the right upper quadrant of the abdomen was performed. Images are reviewed in the transverse and longitudinal planes. FINDINGS: Liver: The liver is normal in size and echotexture. There is intrahepatic biliary ductal dilatation. The main portal vein is patent. Gallbladder: The gallbladder is distended. The gallbladder wall is thickened and edematous measuring up to 7 mm and there is trace pericholecystic fluid. A sono graphic Wilks's sign is likely present although difficult assessed due to analgesia. Sludge is noted. No definite shadowing gallstones are identified. The common bile duct is distended measuring up to 1.3 cm in diameter. No intraluminal filling defects are clearly identified. Pancreas: Visualized portions of the pancreatic head and body are normal in appearance. The splenic vein is patent. Right kidney: Survey images of the right kidney demonstrate mild cortical atrophy. There is no hydronephrosis. Ascites: None. IMPRESSION: 1. Sonographic findings are consistent with acute cholecystitis. This may be acalculous. Surgical consultation is advised. 2. There is intra and extrahepatic biliary ductal dilatation. 3. The pancreatic duct is normal in caliber. ACT 112: Negative or not required by law. Electronically signed by: Cody Mcneill M.D. 10/19/2019 10:52 PM Blood Pressure Blood Pressure Findings: Elevated blood pressure Blood Pressure Disposition: further management by hospitalist Discharge Plan Visit Data *Final* Discharge Date/Time: 10/20/19 00:22 Chief Complaint: Flank Pain Stated Complaint: VOMITING, ABD PAIN, LOWER BACK PAIN ED Provider: Kavin Chávez Discharge Problem: Acute cholecystitis Patient Disposition: Admitted As Inpatient Discharge Instructions Interventions: ED Discharge Assessment Last Done: 10/20/19 00:22 The scribe's documentation has been prepared under my direction and personally reviewed by me in its entirety. I confirm that the note above accurately reflects all work, treatment, procedures, and medical decision making performed by me.
[2019-10-20] MEDS: KETOROLAC TROMETHAMINE 15 MG/ML VIAL IV PRN ×2 (01:00→07:47)
[2019-10-20] MEDS: FAMOTIDINE 20 MG in SYRINGE 3 ML IV SCH ×3 (01:11→20:32)
[2019-10-20] MEDS: NSS + 20MEQ KCL 20 MEQ/1,000 ML BAG IV SCH ×2 (01:12→13:20)
[2019-10-20] MEDS: PIPERACILLIN/TAZOBACTAM 3.375 GM in DEXTROSE 5% 100 ML IV SCH ×3 (03:57→20:31)
[2019-10-20 06:38] LABS: Hemoglobin 13.5 g/dL (12.0-16.0); Mean Corpuscular Hgb Conc 34.6 g/dL (32-36); Mean Corpuscular Volume 89.7 fL (80-100); Platelet Count 213 K/uL (130-400); RDW Coefficient of Variation 12.7 % (11.5-14.5); RDW Standard Deviation 41.7 fL (36.4-46.3); Red Blood Count 4.35 M/uL (4.2-5.4); White Blood Count 14.95 K/uL (4.8-10.8)
[2019-10-20 07:19] LABS: Albumin Globulin Ratio 0.9 (0.9-2); Albumin Level 3.7 gm/dl (3.4-5.0); BUN Creatinine Ratio 13.7 (10-20); Bilirubin Direct 0.4 mg/dl (0-0.2); Bilirubin,Total 1.3 mg/dl (0.2-1); Calcium 8.9 mg/dl (8.5-10.1); Creatinine Clr Calc Pharmacy 55.3 ml/min; Est GFR (African American) 83.1; Est GFR (Non-African American) 71.7; Potassium 3.8 mmol/L (3.5-5.1); Total Protein 7.7 gm/dl (6.4-8.2)
--- NOTE | 2019-10-20 07:57 | Hospitalist Progress Note ---
Date of Service October 20, 2019 Assessment & Plan (1) Acute cholecystitis: ... cancelled GI consult (wont need since MRCP neg) ... CBD stone ruled out by MRCP PLAN: * IV Zosyn * analgesics * IVF and replete lytes * NPO * IV H2B * will need cholecystectomy (2) Hypokalemia: replete monitor (3) Obstructive cholestatic liver disease: see problem #1, "acute cholecystitis" Present on Admission?: Yes (4) Elevated blood pressure reading without diagnosis of hypertension: likely related to ill state would not label pt to have htn monitor closely Present on Admission?: Yes Subjective patient continues w severe R abd pain radiating into R flank. she is sedated but still in pain. MRCP reveals no CBD stones. surgical clinical reviewer saw patient and is awaiting MRCP results. GI consult was cancelled. pathophysiology of biliary disease discussed with at length. will need cholecystectomy. No F/C. pain increases with deep breathing. 2: 79yo F p/w acute RUQ and RLQ pain, radiating to right flank. + N/V at 1700. No CP. No F/C. hx of kidney stones. CT abd/pelv w/ stone protocol: highly concerning for acute cholecystitis. + intra and extrahepatic biliary ductal dilatation. colonic diverticulosis L nephrolithiasis Review of Systems Review of Systems: Positive ROS: as in Subjective Constitutional: no fevers HENT: Negative for sore throat. Respiratory: Negative for cough. Cardiovascular: Negative for chest pain and palpitations. Gastrointestinal: Negative for diarrhea, nausea and vomiting. Genitourinary: Negative for dysuria. Skin: Negative for itching and rash. Neurological: Negative for focal weakness and headaches. Physical Exam Physical Exam: Abnormal Exam: severe abd tenderness R>>>L with guarding and + Wilks's. + distended. no rebound Pulm: efforts very shallow but clear. Constitutional: No distress. HENT: Mouth/Throat: Oropharynx is clear and moist. Eyes: Conjunctivae are normal. No scleral icterus. Cardiovascular: Normal RRR and normal heart sounds. No murmur heard. no gallop and no friction rub. Pulmonary/Chest: No respiratory distress. no wheezing no rales. Musculoskeletal: no deformity. Skin: Skin is warm and dry. Results & Data ([facility]) Vital Signs (Past 12 Hours) Vital Signs Temp Pulse Pulse Pulse Resp BP BP 10/20/19 07:45 37.2 C 91 H 16 144/72 H 10/20/19 05:00 156/83 H 10/20/19 02:58 36.7 C 81 19 185/90 H 10/20/19 00:57 37.1 C 84 20 189/98 H 10/20/19 00:42 10/20/19 00:22 84 16 166/94 H 10/19/19 23:20 83 19 167/95 H 10/19/19 22:50 10/19/19 22:49 70 17 185/89 H 10/19/19 22:00 74 16 181/99 H 10/19/19 21:41 69 22 175/92 H 10/19/19 21:38 91 H 12 10/19/19 21:10 73 19 173/99 H 10/19/19 21:01 68 30 H 10/19/19 21:00 69 28 H 184/96 H 10/19/19 20:53 64 21 193/101 H 10/19/19 20:51 67 22 10/19/19 20:49 71 17 202/105 H 10/19/19 20:02 36.6 C 61 16 180/90 H Pulse Ox Pulse Ox 10/20/19 07:45 94 10/20/19 05:00 10/20/19 02:58 95 10/20/19 00:57 96 10/20/19 00:42 96 10/20/19 00:22 95 10/19/19 23:20 94 10/19/19 22:50 98 10/19/19 22:49 99 10/19/19 22:00 93 10/19/19 21:41 98 10/19/19 21:38 10/19/19 21:10 97 10/19/19 21:01 98 10/19/19 21:00 98 10/19/19 20:53 98 10/19/19 20:51 97 10/19/19 20:49 96 10/19/19 20:02 96 Laboratory Results WBC=15 Yf=776 K=3.8 LFTs: [id number] Diagnostic Findings MRCP: neg for CBD stone Coding Level of Care Code 93746 [facility] 3 Diagnoses Acute cholecystitis K81.0 Hypokalemia E87.6 Obstructive cholestatic liver disease K76.89 Elevated blood pressure reading without diagnosis of hypertension R03.0
[2019-10-20] MEDS: HEPARIN SOD 5,000 UNIT/0.5 ML VIAL SQ SCH ×2 (09:27→20:32)
--- NOTE | 2019-10-20 12:38 | Surgery Consultation ---
Date of Consultation October 20, 2019 Assessment & Plan (1) Acute cholecystitis: 79 yr old woman with imaging and clinical findings of acute cholecystitis. Also with elevated lft's and dilated common duct. MRCP done but not resulted yet. If MRCP is negative, will need lap cholecystectomy. This was briefly discussed with patient but she was too sleepy/ not fully arousable to provide consent. Will await MRCP. Present on Admission?: Yes History of Present Illness Reason for Consultation: acute cholecystitis Requesting Physician: Paradise Marshall MD Attending Physician: Nirav Marshall MD History of Present Illness 79 yr old woman presents with band like abdominal pain starting around 3 am. No similar episodes before. Radiated in tight band around abdomen to back. Severe (10/10), constant, sharp, worse with movement, no relieving factors except pain medications, associated with vomiting and nausea. No diarrhea. Very sleepy from pain medications now and keeps falling asleep during exam/ history. No fevers/ chills. In ER, imaging c/w acute cholecystitis. LFT's also elevated and CBD dilated - GI consulted also. No jaundice. Allergies Allergy/AdvReac Type Severity Reaction Status Date / Time nitrofurantoin Allergy Severe Nausea Unverified 10/19/19 21:56 [From Macrobid] Home Medications Home Medications Medication Instructions Recorded Confirmed Type aspirin 500 mg PO Q6H PRN 10/19/19 10/19/19 History cholecalciferol (vitamin D3) 2,000 unit PO QAM 10/19/19 10/19/19 History [Vitamin D3] Patient History Medical History History of kidney stones Luteal cystic ovary disease Family History Other No significant family history Social History Preferred Language: Albanian Communication Ability: Effective Placing Judge Required: No Beliefs That Will Affect Care: None Current Living Situation: Spouse Feels Safe at Home: Yes Smoking Status: Never smoker Second Hand Exposure: No ; Hx Alcohol Use: No Hx Substance Use: No Review of Systems Review of Systems: Unobtainable due to reduced consciousness very sleepy and difficult to keep awake Physical Exam Constitutional: WD/WN, vitals as above Eyes: PERRL, conjunctivae normal, anicteric sclerae ENMT: Ears: no hearing impairment Neck: trachea midline Respiratory: normal respiratory effort, lungs clear to auscultation Cardiovascular: RRR, no murmur, no edema Gastrointestinal (Abdomen): Inspection/Auscultation: abdomen normal to i nspection and normal bowel sounds; abdomen not distended Percussion/Palpation: + abdomen tender (right upper and mid abdomen), + guarding (mid epigastric) and abdomen soft; no hernia Musculoskeletal: Head/Neck/Chest: normocephalic Extremities: no clubbing Neurologic: moves all extremities; no focal motor deficits Psychiatric: Orientation: oriented x 3 Results & Data Vital Signs (Past 12 Hours) Vital Signs Temp Pulse Pulse Pulse Resp BP Pulse Ox 10/20/19 08:00 84 10/20/19 07:45 37.2 C 91 H 16 144/72 H 94 10/20/19 05:00 156/83 H 10/20/19 02:58 36.7 C 81 19 185/90 H 95 10/20/19 00:57 37.1 C 84 20 189/98 H 96 10/20/19 00:42 Pulse Ox 10/20/19 08:00 10/20/19 07:45 10/20/19 05:00 10/20/19 02:58 10/20/19 00:57 10/20/19 00:42 96 Laboratory Results 10/20/19 10/20/19 10/19/19 Range/Units 06:14 06:14 20:29 WBC 14.95 H (4.8-10.8) K/uL RBC 4.35 (4.2-5.4) M/uL Hgb 13.5 (12.0-16.0) g/dL Hct 39.0 (37-47) % MCV 89.7 (80-100) fL MCH 31.0 (25-34) pg MCHC 34.6 (32-36) g/dL RDW Std Deviation 41.7 (36.4-46.3) fL RDW Coeff of Vasquez 12.7 (11.5-14.5) % Plt Count 213 (130-400) K/uL MPV 9.0 (7.4-10.4) fL Sodium 134 L (136-145) mmol/L Potassium 3.8 D (3.5-5.1) mmol/L Chloride 102 (98-107) mmol/L Carbon Dioxide 25 (21-32) mmol/L Anion Gap 7.0 (3-11) BUN 11 (7-18) mg/dl Creatinine 0.79 (0.6-1.2) mg/dl Est Cr Clr Drug Dosing 55.3 ml/min Est GFR ( Amer) 83.1 Est GFR (Non-Af Amer) 71.7 BUN/Creatinine Ratio 13.7 (10-20) Glucose 185 H (70-99) mg/dl Calcium 8.9 (8.5-10.1) mg/dl Total Bilirubin 1.3 H Cancelled (0.2-1) mg/dl Direct Bilirubin 0.4 H Cancelled (0-0.2) mg/dl AST 255 H Cancelled (15-37) U/L ALT 212 H Cancelled (12-78) U/L Alkaline Phosphatase 140 H Cancelled (45-117) U/L Total Protein 7.7 Cancelled (6.4-8.2) gm/dl Albumin 3.7 Cancelled (3.4-5.0) gm/dl Globulin 4.0 (2.5-4.0) gm/dl Albumin/Globulin Ratio 0.9 (0.9-2) Lipase Cancelled (73-393) U/L Urine Color Urine Appearance (Clear) Urine pH (4.5-7.5) Ur Specific [place] (1.000-1.030) Urine Protein (Negative) Urine Glucose (UA) (Negative) Urine Ketones (Negative) Urine Blood (Negative) Urine Nitrite (Negative) Urine Bilirubin (Negative) Urine Urobilinogen (Negative) Ur Leukocyte Esterase (Negative) Urine WBC (Auto) (0-5) /hpf Urine RBC (Auto) (0-4) /hpf U Hyaline Cast (Auto) (0-5) /lpf U Epithel Cells (Auto) (0-5) /lpf Urine Bacteria (Auto) (Negative) 10/19/19 10/19/19 10/19/19 Range/Units 20:29 20:29 20:29 WBC 10.57 (4.8-10.8) K/uL RBC 4.33 (4.2-5.4) M/uL Hgb 13.6 (12.0-16.0) g/dL Hct 39.7 (37-47) % MCV 91.7 (80-100) fL MCH 31.4 (25-34) pg MCHC 34.3 (32-36) g/dL RDW Std Deviation 42.6 (36.4-46.3) fL RDW Coeff of Vasquez 12.6 (11.5-14.5) % Plt Count 226 (130-400) K/uL MPV 9.4 (7.4-10.4) fL Sodium 138 (136-145) mmol/L Potassium 3.3 L (3.5-5.1) mmol/L Chloride 101 (98-107) mmol/L Carbon Dioxide 29 (21-32) mmol/L Anion Gap 8.0 (3-11) BUN 14 (7-18) mg/dl Creatinine 0.81 (0.6-1.2) mg/dl Est Cr Clr Drug Dosing 54.5 ml/min Est GFR ( Amer) 80.6 Est GFR (Non-Af Amer) 69.6 BUN/Creatinine Ratio 17.3 (10-20) Glucose 193 H (70-99) mg/dl Calcium 9.6 (8.5-10.1) mg/dl Total Bilirubin 1.2 H (0.2-1) mg/dl Direct Bilirubin 0.7 H (0-0.2) mg/dl AST 153 H (15-37) U/L ALT 69 (12-78) U/L Alkaline Phosphatase 133 H (45-117) U/L Total Protein 8.0 (6.4-8.2) gm/dl Albumin 4.2 (3.4-5.0) gm/dl Globulin (2.5-4.0) gm/dl Albumin/Globulin Ratio (0.9-2) Lipase 250 (73-393) U/L Urine Color Yellow Urine Appearance Clear (Clear) Urine pH 7.5 (4.5-7.5) Ur Specific [place] 1.015 (1.000-1.030) Urine Protein Negative (Negative) Urine Glucose (UA) Negative (Negative) Urine Ketones 1+ H (Negative) Urine Blood Negative (Negative) Urine Nitrite Negative (Negative) Urine Bilirubin Negative (Negative) Urine Urobilinogen Negative (Negative) Ur Leukocyte Esterase Trace H (Negative) Urine WBC (Auto) 5-10 H (0-5) /hpf Urine RBC (Auto) 0-4 (0-4) /hpf U Hyaline Cast (Auto) 0 (0-5) /lpf U Epithel Cells (Auto) 10-20 H (0-5) /lpf Urine Bacteria (Auto) Negative (Negative) Diagnostic Findings RUQ U/SFINDINGS: Liver: The liver is normal in size and echotexture. There is intrahepatic biliary ductal dilatation. The main portal vein is patent. Gallbladder: The gallbladder is distended. The gallbladder wall is thickened and edematous measuring up to 7 mm and there is trace pericholecystic fluid. A sonographic Wilks's sign is likely present although difficult assessed due to analgesia. Sludge is noted. No definite shadowing gallstones are identified. The common bile duct is distended measuring up to 1.3 cm in diameter. No intraluminal filling defects are clearly identified. Pancreas: Visualized portions of the pancreatic head and body are normal in appearance. The splenic vein is patent. Right kidney: Survey images of the right kidney demonstrate mild cortical atrophy. There is no hydronephrosis. Ascites: None. IMPRESSION: 1. Sonographic findings are consistent with acute cholecystitis. This may be acalculous. Surgical consultation is advised. 2. There is intra and extrahepatic biliary ductal dilatation. 3. The pancreatic duct is normal in caliber.
--- NOTE | 2019-10-20 14:28 | Magnetic Resonance Report ---
MRCP CLINICAL HISTORY: Cholecystitis. COMPARISON STUDY: Abdominal CT and abdominal ultrasound dated 10/19/2019. TECHNIQUE: Abdominal MRCP is performed utilizing various T2-weighted sequences in the axial and coron al planes. IV contrast was not administered for this examination. 3-D reformats are created and asses sed. The examination is compromised by motion artifact. FINDINGS: The gallbladder is distended. No gallstones are identified. The gallbladder wall appears thickened an d there is pericholecystic fluid. The appearance remains consistent with acute cholecystitis. Intra a nd extrahepatic biliary ductal dilatation is unchanged. The common bile duct is dilated measuring up to 1.3 cm in diameter. No intraluminal filling defects are identified to suggest choledocholithiasis. The pancreatic duct is normal in caliber. The hepatic parenchyma is grossly unremarkable. The spleen, pancreas, and adrenal glands are grossly normal. The kidneys demonstrate cortical atrophy and are without hydronephrosis. A subcentimeter cyst is noted on the left. The abdominal aorta is normal in caliber. There is no bowel obstruction. Trace perihepatic ascites is observed. There are trace pleural effusions and bibasilar consolidation. No d estructive bony process is identified. IMPRESSION: 1. Findings are consistent with acute cholecystitis which may be acalculous. 2. Intra and extrahepatic biliary ductal dilatation is unchanged. 3. There is no evidence of choledocholithiasis. 4. Trace pleural effusions. Dictated: 10/20/2019 12:34 PM Transcribed: 10/20/2019 2:12 PM Mariah [id number] [email or web address] Electronically signed by: Cody Mcneill M.D. 10/20/2019 2:27 PM
--- NOTE | 2019-10-20 15:32 | Surgery Consultation ---
Date of Consultation October 20, 2019 Assessment & Plan (1) Acute cholecystitis: 79 yr old woman with imaging and clinical findings of acute cholecystitis. Also with elevated lft's and dilated common duct. MRCP done but not resulted yet. If MRCP is negative, will need lap cholecystectomy. This was briefly discussed with patient but she was too sleepy/ not fully arousable to provide consent. Will await MRCP. History of Present Illness Attending Physician: Nirav Marshall MD Allergies Allergy/AdvReac Type Severity Reaction Status Date / Time nitrofurantoin Allergy Severe Nausea Unverified 10/19/19 21:56 [From Macrobid] Home Medications Home Medications Medication Instructions Recorded Confirmed Type aspirin 500 mg PO Q6H PRN 10/19/19 10/19/19 History cholecalciferol (vitamin D3) 2,000 unit PO QAM 10/19/19 10/19/19 History [Vitamin D3] Patient History Medical History History of kidney stones Luteal cystic ovary disease Family History Other No significant family history Social History Preferred Language: [place] Islander Communication Ability: Effective Plumber Supervisor Required: No Beliefs That Will Affect Care: None Current Living Situation: Spouse Feels Safe at Home: Yes Smoking Status: Never smoker Second Hand Exposure: No ; Hx Alcohol Use: No Hx Substance Use: No Physical Exam Constitutional: WD/WN, vitals as above Eyes: PERRL, conjunctivae normal, anicteric sclerae ENMT: Ears: no hearing impairment Neck: trachea midline Respiratory: normal respiratory effort, lungs clear to auscultation Cardiovascular: RRR, no murmur, no edema Gastrointestinal (Abdomen): Inspection/Auscultation: abdomen normal to inspection and normal bowel sounds; abdomen not distended Percussion/Palpation: + abdomen tender (right upper and mid abdomen), + guarding (mid epigastric) and abdomen soft; no hernia Musculoskeletal: Head/Neck/Chest: normocephalic Extremities: no clubbing Neurologic: moves all extremities; no focal motor deficits Psychiatric: Orientation: oriented x 3 Results & Data Vital Signs (Past 12 Hours) Vital Signs Temp Pulse Pulse Pulse Resp BP BP 10/20/19 08:00 84 10/20/19 07:45 37.2 C 91 H 16 144/72 H 10/20/19 05:00 156/83 H 10/20/19 02:58 36.7 C 81 19 185/90 H 10/20/19 00:57 37.1 C 84 20 189/98 H 10/20/19 00:42 10/20/19 00:22 84 16 166/94 H Pulse Ox Pulse Ox 10/20/19 08:00 10/20/19 07:45 94 10/20/19 05:00 10/20/19 02:58 95 10/20/19 00:57 96 10/20/19 00:42 96 10/20/19 00:22 95
--- NOTE | 2019-10-20 15:34 | History & Physical Bridge Note ---
Date of Service October 20, 2019 History & Physical Bridge Note I have examined the patient, reviewed the History & Physical and in the interval since the performance of the History & Physical I have noted the following changes of clinical significance: no changes noted except MRCP negative. No evidence of gallstones. Discussed laparoscopic cholecystectomy with risks of bleeding, infection, conversion to open, postop bile leak, postop intolerance to foods, postop diarrhea. Consent signed. For OR today.
[2019-10-20] MEDS ORDERED: ATROPINE SULFATE 0.1 MG/ML 10ML SYR IV PRN (16:00)
[2019-10-20] MEDS ORDERED: MEPERIDINE HCL 25 MG/ML CARP IV PRN (16:00)
[2019-10-20] MEDS ORDERED: fentaNYL citrate 100 MCG/2 ML VIAL IV PRN (16:00)
[2019-10-20] MEDS ORDERED: ePHEDrine sulfate 50 MG/ML AMP IV PRN (16:00)
--- NOTE | 2019-10-20 16:00 | Anesthesiology Consultation ---
Date of Service October 20, 2019 Assessment & Plan Chart Review Chart Review: Acceptable Risk for Surgery Consults Requested none ASA [id number] Proposed Anesthesia Anesthesia Type: General Risk / Benefits Reviewed With: PT / POA / Parent / Guardian, Accepts Plan and Informed Consent Obtained History Surgery Operation Date: 10/20/19 17:00 Proposed Procedures p Laparoscopic Cholecystectomy - Rosalba Pickering MD Height/Weight Height: 5 ft 4 in Weight: 67.3 kg Allergies Allergy/AdvReac Type Severity Reaction Status Date / Time nitrofurantoin Allergy Severe Nausea Unverified 10/19/19 21:56 [From Macrobid] Medications Home Medications Medication Instructions Recorded Confirmed Last Taken aspirin 500 mg PO Q6H PRN 10/19/19 10/19/19 10/19/19 cholecalciferol (vitamin D3) 2,000 unit PO QAM 10/19/19 10/19/19 10/18/19 [Vitamin D3] Active Medications Generic Name Dose Route Start Last Admin Trade Name Freq PRN Reason Stop Dose Admin Heparin Sodium (Porcine) 5,000 units 10/20/19 09:00 10/20/19 09:27 Heparin Sodium (Porcine) SQ 11/19/19 08:59 5,000 units Q12 LINDA Administration Hydralazine HCl 10 mg 10/20/19 00:42 10/20/19 02:54 Hydralazine Hcl IV 11/19/19 00:41 10 mg Q4H PRN Administration Systolic BP > 160 or diastolic >95 Hydromorphone HCl 0.5 mg 10/20/19 00:42 10/20/19 06:09 Dilaudid IV 11/03/19 00:41 0.5 mg Q3H PRN Administration Moderate Pain Hydromorphone HCl 1 mg 10/20/19 00:42 10/20/19 09:37 Dilaudid IV 11/03/19 00:41 1 mg Q3H PRN Administration Severe Pain Famotidine 20 mg/ Syringe 5 mls @ 2.5 mls/min 10/20/19 00:42 10/20/19 09:25 IV 11/19/19 00:41 2.5 mls/min BID LINDA Administration Potassium Chloride/Sodium Chloride 20 meq in 1,000 mls @ 100 mls/hr 10/20/19 00:42 10/20/19 13:20 Normal Saline W/20 Meq Kcl IV 11/19/19 00:41 100 mls/hr .Q10H LINDA Administration Piperacillin Sod/Tazobactam 115 mls @ 28.75 mls/hr 10/20/19 04:00 10/20/19 13:14 Sod 3.375 gm/ Dextrose IV 10/30/19 03:59 28.8 mls/hr Q8H LINDA Administration Protocol Ketorolac Tromethamine 15 mg 10/20/19 00:42 10/20/19 07:47 Toradol IV 10/25/19 00:41 15 mg Q6H PRN Administration Mild pain/fever Ondansetron HCl 4 mg 10/20/19 00:42 10/20/19 02:35 Zofran IV 11/19/19 00:41 4 mg Q6H PRN Administration nausea or vomiting NPO Date Last Intake of Fluids: 10/20/19 Time Last Intake of Fluids: 00:00 Date Last Intake of Solids: 10/20/19 Time Last Intake of Solids: 00:00 Past Medical History Medical History History of kidney stones Luteal cystic ovary disease Exercise / Class Metabolic Activity II 4-5 Yardwork/Stairs/Walk up hill Past Family History Family History Other No significant family history Past Surgical History Surgical History (Updated 10/20/19 @ 16:28 by Malathi Gutiérrez DO) History of laparoscopy Past Anesthesia History No Hx of Anesthesia Complications and No Family Hx of Anesthesia Complications History of PONV No Hx of PONV and No Hx of Motion Sickness Social History Smoking Status: Never smoker Do You Dip or Chew Tobacco: No Hx Alcohol Use: No Hx Substance Use: No Physical Exam Vital Signs Last Vital Signs Temp 36.7 C 10/20/19 15:37 Pulse 82 10/20/19 15:37 Resp 18 10/20/19 15:37 BP 115/66 10/20/19 15:37 Pulse Ox 96 10/20/19 15:37 ENMT Mouth: no TMJ abnormality Thyromental Distance: > or= 3.5 Finger Breadths Mallampati Class: II Neck normal visual inspection and trachea midline; neck extension not limited Respiratory normal respiratory effort Auscultation: lungs clear to auscultation bilaterally Cardiovascular Rate/Rhythm: regular rate and regular rhythm Heart Sounds: no murmur Musculoskeletal Spine: normal cervical ROM Extremities: full ROM of extremities Neurologic moves all extremities Psychiatric Orientation: alert and oriented x 3 Testing Laboratory Results 10/20/19 06:14 10/20/19 06:14 Urine Color Yellow 10/19/19 20: Urine Appearance Clear (Clear) 10/19/19 20: Urine pH 7.5 (4.5-7.5) 10/19/19 20: Ur Specific [place] 1.015 (1.000-1.030) 10/19/19 20: Urine Protein Negative (Negative) 10/19/19 20: Urine Glucose (UA) Negative (Negative) 10/19/19 Urine Ketones 1+ (Negative) H 10/19/19 20: Urine Nitrite Negative (Negative) 10/19/19 20: Ur Leukocyte Esterase Trace (Negative) H 10/19/19 20:29 Urine WBC (Auto) 5-10 /hpf (0-5) H 10/19/19 20:29 Urine RBC (Auto) 0-4 /hpf (0-4) 10/19/19 20: U Hyaline Cast (Auto) 0 /lpf (0-5) 10/19/19 20: U Epithel Cells (Auto) 10-20 /lpf (0-5) H 10/19/19 20:29 Urine Bacteria (Auto) Negative (Negative) 10/19/19 20:29
[2019-10-20] MEDS ORDERED: BUPIVACAINE 0.5 % 5 MG/1 ML MPF 30ML VIAL ONE (16:05)
[2019-10-20] MEDS ORDERED: CONRAY 60% 50 ML VIAL ONE (16:05)
[2019-10-20] MEDS ORDERED: SUCCINYLCHOLINE CHLORIDE 20 MG/ML 10 ML VIAL ONE (16:10)
[2019-10-20] MEDS ORDERED: PROPOFOL IV EMULSION 10 MG/ML 20 ML VIAL IV ONE (16:10)
[2019-10-20] MEDS ORDERED: ROCURONIUM BROMIDE 10 MG/ML 5 ML VIAL ONE (16:10)
[2019-10-20] MEDS ORDERED: PHENYLEPHRINE 100MCG/ML 5ML SYR ONE ×2 (16:10→17:13)
[2019-10-20] MEDS ORDERED: DEXAMETHASONE SOD INJ 4 MG/ML VIAL ONE (16:10)
[2019-10-20] MEDS ORDERED: LIDOCAINE HCL 2% 2 ML VIAL/AMP(20MG/ML) INFIL ONE (16:10)
[2019-10-20] MEDS ORDERED: GLYCOPYRROLATE 0.2 MG/ML VIAL ONE (16:10)
[2019-10-20] MEDS ORDERED: ONDANSETRON INJ 2 MG/ML 2 ML VIAL ONE (16:10)
[2019-10-20] MEDS ORDERED: fentaNYL citrate 100 MCG/2 ML VIAL ONE ×2 (16:11→17:14)
[2019-10-20] MEDS ORDERED: MIDAZOLAM HCL 1 MG/ML 2ML VIAL ONE (16:11)
--- NOTE | 2019-10-20 17:50 | Operative Report ---
Post Operative Report Pre & Post Diagnosis Operation Date: 10/20/19 17:00 Pre-Op Diagnosis: CHOLECYSTITIS Post-Op Diagnosis: CHOLECYSTITIS I identified the patient and participated in the time-out.: Yes Procedure Operation Date: 10/20/19 17:00 Actual Procedures p Laparoscopic Cholecystectomy(Not Applicable) - Rosalba Pickering MD Surgeon Rosalba Pickering MD Loan Documentation Specialist none Estimated Blood Loss 5 Findings Consistent with Post-Op Diagnosis Specimens gallbladder Description of Procedure see dictated operative report I attest to the content of the Intraoperative Record and any orders documented therein. Any exceptions are noted below.
[2019-10-20] MEDS ORDERED: NALOXONE HCL 0.4 MG/1 ML VIAL/CARP ONE (18:15)
--- NOTE | 2019-10-20 18:34 | Anesthesiology Progress Note ---
Date of Service October 20, 2019 Anesthesia Post Procedure Vital Signs Vital Signs: Temp Pulse Pulse Pulse Resp BP BP 10/20/19 18:30 97 H 20 122/78 10/20/19 18:20 91 H 17 136/63 10/20/19 18:10 97 H 20 125/62 10/20/19 18:03 36.8 C 98 H 16 136/67 10/20/19 15:37 36.7 C 82 18 115/66 10/20/19 15:22 65 10/20/19 12:58 36.9 C 72 18 114/69 10/20/19 08:00 84 10/20/19 07:45 37.2 C 91 H 16 144/72 H 10/20/19 05:00 156/83 H 10/20/19 02:58 36.7 C 81 19 185/90 H 10/20/19 00:57 37.1 C 84 20 189/98 H 10/20/19 00:42 10/20/19 00:22 84 16 166/94 H 10/19/19 23:20 83 19 167/95 H 10/19/19 22:50 10/19/19 22:49 70 17 185/89 H 10/19/19 22:00 74 16 181/99 H 10/19/19 21:41 69 22 175/92 H 10/19/19 21:38 91 H 12 10/19/19 21:10 73 19 173/99 H 10/19/19 21:01 68 30 H 10/19/19 21:00 69 28 H 184/96 H 10/19/19 20:53 64 21 193/101 H 10/19/19 20:51 67 22 10/19/19 20:49 71 17 202/105 H 10/19/19 20:02 36.6 C 61 16 180/90 H Pulse Ox Pulse Ox 10/20/19 18:30 94 10/20/19 18:20 96 10/20/19 18:10 97 10/20/19 18:03 98 10/20/19 15:37 96 10/20/19 15:22 10/20/19 12:58 96 10/20/19 08:00 10/20/19 07:45 94 10/20/19 05:00 10/20/19 02:58 95 10/20/19 00:57 96 10/20/19 00:42 96 10/20/19 00:22 95 10/19/19 23:20 94 10/19/19 22:50 98 10/19/19 22:49 99 10/19/19 22:00 93 10/19/19 21:41 98 10/19/19 21:38 10/19/19 21:10 97 10/19/19 21:01 98 10/19/19 21:00 98 10/19/19 20:53 98 10/19/19 20:51 97 10/19/19 20:49 96 10/19/19 20:02 96 Pain Intensity Bilateral Flank: Pain Intensity: 9 Right Abdomen: Pain Intensity: 9 Transfer of Care Handoff Completed per policy Notes Mental Status: alert / awake / arousable and participated in evaluation Nausea / Vomiting: adequately controlled Pain: adequately controlled Airway Patency, RR, SpO2: stable & adequate BP & HR: stable & adequate Hydration State: stable & adequate Anesthetic Complications: no major complications apparent and Pt Satisfied with anesthetic care
--- NOTE | 2019-10-20 19:23 | Operative Report ---
DATE OF OPERATION: 10/20/2019 PREOPERATIVE DIAGNOSES: Acute acalculous cholecystitis with elevated liver function tests, dilated common bile duct and negative MRCP. POSTOPERATIVE DIAGNOSES: Acute acalculous cholecystitis with elevated liver function tests, dilated common bile duct and negative MRCP. OPERATIVE PROCEDURE: Laparoscopic cholecystectomy. SURGEON: Rosalba Pickering MD SCUDDING INSPECTOR: None. ANESTHESIA: General endotracheal anesthesia, ASA-3. ESTIMATED BLOOD LOSS: 5 mL INTRAVENOUS FLUIDS: 500 mL COMPLICATIONS: None. SPECIMENS: Appendix. DRAINS: None. INDICATIONS: Ms. Pereira is a 79-year-old woman who presented with abdominal pain, elevated liver function tests and a dilated common bile duct. She was found to have acalculous cholecystitis. MRCP was negative for common duct stones. She was consented for laparoscopic cholecystectomy. DESCRIPTION OF PROCEDURE: The patient was on Zosyn preoperatively. After the induction of general endotracheal anesthesia, she had placed in sequential compression devices. Her abdomen was sterilely prepped and draped. She was initially positioned in Trendelenburg. A supraumbilical incision was made and a Veress needle placed into the peritoneal cavity. This was tested with the saline drop test. Pneumoperitoneum was established. Initial pressure was 1 mmHg and this was taken up to 15 mmHg. A 5 mm trocar was placed using the camera through the trocar site, the patient's position was reversed to reverse Trendelenburg. Three additional trocars were placed, an 11 in the epigastrium and two 5s on the right side of the abdomen. The gallbladder was markedly distended with inflammatory adhesions and Inflammatory adhesions were taken down. The gallbladder was drained and this allowed it to then be grasped and retracted over the liver. Dissection was begun at the triangle of [place]. The cystic artery was identified, doubly clipped on the remaining side, doubly clipped on the gallbladder side and divided. The gallbladder was triangulated on the cystic duct. In this area there was a small bleeder noted. Decision was made to not perform a cholangiogram due to the significant edema and difficulty in dissecting out a very short section of the duct and my worry that I would be unable to clip lower than the ductotomy. Also with a negative MRCP and no evidence of stones, I felt it was reasonable to just proceed with a laparoscopic cholecystectomy. Thus the gallbladder was doubly clipped on the remaining side, doubly clipped on the gallbladder side and divided. It was then dissected off the liver bed, a small feeding vessels were taken with clips were needed. It was then placed in an Endobag and removed through the epigastric incision. Hemostasis was noted to be present. The abdomen was irrigated and suctioned clear. The trocars were removed. 30 mL of 0.5% Marcaine had been used for local anesthesia throughout the procedure. The fascia of the epigastric incision was closed with 0 Vicryl stitches placed anteriorly. The skin of all 4 incisions was closed with running subcuticular 4-0 Vicryl sutures. Steri-Strip and dry dressings were applied. She was awakened and taken to recovery in stable condition. I attest to the content of the Intraoperative Record and any orders documented therein. Any exception s are noted below.
[2019-10-21] MEDS: NSS + 20MEQ KCL 20 MEQ/1,000 ML BAG IV SCH ×2 (01:58→12:43)
[2019-10-21] MEDS: PIPERACILLIN/TAZOBACTAM 3.375 GM in DEXTROSE 5% 100 ML IV SCH ×2 (03:55→12:43)
[2019-10-21 07:02] LABS: Hematocrit (blood only) 33.3 % (37-47); Mean Corpuscular Hemoglobin 30.6 pg (25-34); Mean Corpuscular Volume 92.8 fL (80-100); Mean Platelet Volume 9.4 fL (7.4-10.4); Platelet Count 172 K/uL (130-400); RDW Coefficient of Variation 13.3 % (11.5-14.5); RDW Standard Deviation 45.3 fL (36.4-46.3); Red Blood Count 3.59 M/uL (4.2-5.4); White Blood Count 12.86 K/uL (4.8-10.8)
[2019-10-21 07:14] LABS: INR 1.3 (0.9-1.1); Partial Thromboplastin Ratio 1.1
[2019-10-21 07:41] LABS: Albumin Globulin Ratio 0.8 (0.9-2); Albumin Level 2.9 gm/dl (3.4-5.0); BUN Creatinine Ratio 20.1 (10-20); Bilirubin Direct 0.3 mg/dl (0-0.2); Bilirubin,Total 0.9 mg/dl (0.2-1); Calcium 8.6 mg/dl (8.5-10.1); Creatinine Clr Calc Pharmacy 41.4 ml/min; Est GFR (African American) 57.6; Est GFR (Non-African American) 49.7; Globulin 3.5 gm/dl (2.5-4.0); Potassium 4.1 mmol/L (3.5-5.1); Total Protein 6.4 gm/dl (6.4-8.2)
[2019-10-21] MEDS: KETOROLAC TROMETHAMINE 15 MG/ML VIAL IV PRN ×2 (07:45→14:11)
[2019-10-21] MEDS: FAMOTIDINE 20 MG in SYRINGE 3 ML IV SCH (07:46)
[2019-10-21] MEDS: HEPARIN SOD 5,000 UNIT/0.5 ML VIAL SQ SCH (07:46)
[2019-10-21] MEDS ORDERED: TRAMADOL HCL 50 MG TABLET PO PRN (13:58)
--- NOTE | 2019-10-21 14:04 | Surgery Progress Note ---
Date of Service October 21, 2019 Assessment & Plan (1) Acute cholecystitis: POD # 1 s/p laparoscopic cholecystectomy -vitals stable, afebrile - postop pain minimal and controlled - no n/v - T. bili and LFTS improved Plan: Okay from surgical standpoint for discharge discharge instructions reviewed with patient and f/u surgical office in [address] Guerrero has seen patient, agrees with above Subjective feeling well today preoperative abdominal pain has resolved some soreness at incision sites tolerating regular diet, no n/v ambulating hallway urinating without difficulty no chest pain, sob, dizziness Physical Exam Constitutional: WD/WN, vitals as above no acute distress Respiratory: normal respiratory effort; no respiratory distress Gastrointestinal (Abdomen): Inspection/Auscultation: abdomen normal to inspection; abdomen not distended Percussion/Palpation: + abdomen tender (minimal at incision sites) and abdomen soft; no guarding and abdomen not rigid Skin: no rashes, warm and dry + incision (Covered with dry dressings) Psychiatric: A+Ox3, euthymic affect Results & Data Vital Signs (Past 12 Hours) Vital Signs Temp Pulse Resp BP BP Pulse Ox 10/21/19 10:56 36.5 C 74 19 127/66 92 10/21/19 07:07 36.5 C 77 18 108/60 95 10/21/19 04:03 37.2 C 78 19 100/59 L 92 Laboratory Results 10/21/19 10/21/19 10/21/19 Range/Units 06:35 06:35 06:35 WBC 12.86 H (4.8-10.8) K/uL RBC 3.59 L (4.2-5.4) M/uL Hgb 11.0 L (12.0-16.0) g/dL Hct 33.3 L (37-47) % MCV 92.8 (80-100) fL MCH 30.6 (25-34) pg MCHC 33.0 (32-36) g/dL RDW Std Deviation 45.3 (36.4-46.3) fL RDW Coeff of Vasquez 13.3 (11.5-14.5) % Plt Count 172 (130-400) K/uL MPV 9.4 (7.4-10.4) fL PT 13.0 H (9.0-12.0) Seconds INR 1.3 H (0.9-1.1) APTT 30.0 (21.0-31.0) Seconds PTT Ratio 1.1 Sodium 133 L (136-145) mmol/L Potassium 4.1 (3.5-5.1) mmol/L Chloride 102 (98-107) mmol/L Carbon Dioxide 24 (21-32) mmol/L Anion Gap 7.0 (3-11) BUN 22 H D (7-18) mg/dl Creatinine 1.07 (0.6-1.2) mg/dl Est Cr Clr Drug Dosing 41.4 ml/min Est GFR ( Amer) 57.6 Est GFR (Non-Af Amer) 49.7 BUN/Creatinine Ratio 20.1 H (10-20) Glucose 99 (70-99) mg/dl Calcium 8.6 (8.5-10.1) mg/dl Total Bilirubin 0.9 (0.2-1) mg/dl Direct Bilirubin 0.3 H (0-0.2) mg/dl AST 59 H (15-37) U/L ALT 118 H (12-78) U/L Alkaline Phosphatase 92 (45-117) U/L Total Protein 6.4 (6.4-8.2) gm/dl Albumin 2.9 L (3.4-5.0) gm/dl Globulin 3.5 (2.5-4.0) gm/dl Albumin/Globulin Ratio 0.8 L (0.9-2)
--- NOTE | 2019-10-21 16:40 | Hospitalist Progress Note ---
Date of Service October 21, 2019 Assessment & Plan (1) Acute cholecystitis: Patient eager to go home. She will follow-up with surgery. Continue 5 more days of antibiotics p.o. metronidazole 500 mg 3 times daily and Keflex 500 mg 4 times daily for 5 days. Follow-up with PCP within 1 week. Recheck CBC at that time Follow-up with surgery in 2 weeks as per instructions. (2) Hypokalemia: replete monitor (3) Obstructive cholestatic liver disease: see problem #1, "acute cholecystitis" (4) Elevated blood pressure reading without diagnosis of hypertension: likely related to ill state would not label pt to have htn monitor closely Subjective Patient seen and examined at the bedside. She feels much better. P.o. intake is improving. She is afebrile and eager to go home. Patient denies fever, chills, chest pain, shortness of breath, abdominal pain, frequency, urgency. Review of Systems Review of Systems: All systems reviewed & are unremarkable except as noted in HPI & below Physical Exam Physical Exam: Constitutional: WD/WN, vitals as above no acute distress Eyes: PERRL, conjunctivae normal, anicteric sclerae ENMT: Mouth: no TMJ abnormality Mallampati Class: II Neck: normal visual inspection and trachea midline; neck extension not limited Respiratory: normal respiratory effort, lungs clear to auscultation normal respiratory effort; no respiratory distress Auscultation: lungs clear to auscultation bilaterally Cardiovascular: RRR, no murmur, no edema Rate/Rhythm: regular rate and regular rhythm Heart Sounds: no murmur Gastrointestinal (Abdomen): Inspection/Auscultation: abdomen normal to inspection and normal bowel sounds; abdomen not distended Percussion/Palpatio n: abdomen soft; abdomen nontender, no guarding, abdomen not rigid and no hernia Musculoskeletal: Head/Neck/Chest: normocephalic Spine: normal cervical ROM Extremities: full ROM of extremities and no clubbing Skin: no rashes, warm and dry + incision (Covered with dry dressings) Neurologic: moves all extremities; no focal motor deficits Psychiatric: A+Ox3, euthymic affect Orientation: alert and oriented x 3 Results & Data ([facility]) Vital Signs (Past 12 Hours) Vital Signs Temp Pulse Resp BP Pulse Ox 10/21/19 15:47 37.1 C 72 20 102/62 93 10/21/19 10:56 36.5 C 74 19 127/66 92 10/21/19 07:07 36.5 C 77 18 108/60 95 PG Care Time/CCT Total # of Minutes Spent Total Time Spent with Patient: Total time spent is greater than 50% in coordination of care (as documented) at patient's floor/unit and/or counseling patient: Coding Level of Care Code 11295 Subseq Hosp Care Lvl 3 Diagnoses Acute cholecystitis K81.0 Hypokalemia E87.6 Obstructive cholestatic liver disease K76.89 Elevated blood pressure reading without diagnosis of hypertension R03.0
--- NOTE | 2019-10-21 18:35 | Discharge Summary ---
Date of Service October 21, 2019 Principal Diagnosis none Discharge Exam Constitutional WD/WN, vitals as above no acute distress Eyes PERRL, conjunctivae normal, anicteric sclerae ENMT Mouth: no TMJ abnormality Mallampati Class: II Neck normal visual inspection and trachea midline; neck extension not limited Respiratory normal respiratory effort, lungs clear to auscultation normal respiratory effort; no respiratory distress Auscultation: lungs clear to auscultation bilaterally Cardiovascular RRR, no murmur, no edema Rate/Rhythm: regular rate and regular rhythm Heart Sounds: no murmur Gastrointestinal (Abdomen) Inspection/Auscultation: abdomen normal to inspection and normal bowel sounds; abdomen not distended Percussion/Palpation: abdomen soft; abdomen nontender, no guarding, abdomen not rigid and no hernia Musculoskeletal Head/Neck/Chest: normocephalic Spine: normal cervical ROM Extremities: full ROM of extremities and no clubbing Skin no rashes, warm and dry + incision (Covered with dry dressings) Neurologic moves all extremities; no focal motor deficits Psychiatric A+Ox3, euthymic affect Orientation: alert and oriented x 3 Discharge Data Allergies Allergy/AdvReac Type Severity Reaction Status Date / Time nitrofurantoin Allergy Severe Nausea Unverified 10/19/19 21:56 [From Macrobid] Consultations 10/19/19 22:52 ED Decision to Admit Stat 10/20/19 00:42 Consult General Surgery Routine 10/20/19 11:23 Consult General Surgery Routine Procedures Performed Operation Date: 10/20/19 17:00 Actual Procedures p Laparoscopic Cholecystectomy(Not Applicable) - Rosalba Pickering MD Ordered Studies 10/19/19 21:13 CT abd pelvis wo con Stat 10/19/19 21:52 US gallbladder Stat 10/20/19 00:42 MR MRCP Routine Hospital Course (1) Acute cholecystitis: Patient eager to go home. She will follow-up with surgery. Continue 5 more days of antibiotics p.o. metronidazole 500 mg 3 times daily and Keflex 500 mg 4 times daily for 5 days. Follow-up with PCP within 1 week. Recheck CBC at that time Follow-up with surgery in 2 weeks as per instructions. (2) Hypokalemia: replete monitor (3) Obstructive cholestatic liver disease: see problem #1, "acute cholecystitis" (4) Elevated blood pressure reading without diagnosis of hypertension: likely related to ill state would not label pt to have htn monitor closely Total Time Total Time Spent Total Time Spent (In Minutes): over 30 min Discharge Plan Discharge Items Patient Disposition: Home - Self-Care Reason For Visit: CHOLECYSTITIS Discharge Diagnosis: Acute cholecystitis Condition on Discharge: Good Activity: Per Instructions section Lifting: None Non-emergency contact: Primary Care Provider and Surgeon Call non-emergency contact if: you have any medication questions, your symptoms worsen, your pain is not controlled, your pain is worsening, your pain is unusual for you, your pain is concerning for you, you have a fever and your temperature is above 101 Follow-up/Referrals: Daniella Gill D.O. [Primary Care Provider] - Diet: Heart Healthy and Low Fat Addtl Attending Provider Instructions: Needs follow-up with surgery within 2 weeks as an surgical discharge instructions below. Please follow-up with your primary care physician within 1 week. At that appointment check CBC and CMP. Addtl Wharf Helper Provider Instructions: Surgical discharge instructions: - no heavy lifting over 10 pounds for 2 weeks - no strenuous activity until cleared by surgeon - no submerging incisions underwater for 2 weeks (no bathing, swimming, or hot tubs) - no driving while taking narcotic pain medication or still having pain - You may shower tonight. Remove outer dressings before showering. Keep steri strips on incisions for 7 days from your surgery and then remove. - You may take extra strength Tylenol or ibuprofen as needed for mild pain. - 650 mg of Tylenol every 6 hours as needed - 600 mg of Ibuprofen every 6 hours as needed - Follow-up in surgical office in 2 weeks. Please call office at [phone] to make an appointment with either Mamta Tee PA-C or Dr. Pickering. Pending Studies at Discharge: Yes (Gallbladder pathology, will be reviewed at follow-up visit) Stand-Alone Forms: My [facility] [employer], Smoking Cessation Medications and DC Order Prescriptions: New metronidazole 500 mg tablet 500 mg PO TID Qty: 15 RF: 0 cephalexin [Keflex] 500 mg capsule 500 mg PO QID 5 Days Qty: 20 RF: 0 acetaminophen [Tylenol 8 Hour] 650 mg tablet extended release 650 mg PO Q12H PRN (Reason: fever or pain) Qty: 20 RF: 0 aspirin [Aspir-81] 81 mg tablet,delayed release (DR/EC) 81 mg PO DAILY Qty: 30 RF: 0 Continued cholecalciferol (vitamin D3) [Vitamin D3] 2,000 unit Tablet 2,000 unit PO QAM RF: 0 Discontinued aspirin 500 mg Tablet 500 mg PO Q6H PRN (Reason: Pain) RF: 0 Discharge Orders: Discharge Order (Routine); Ordered 10/21/19 Ordered By: Gregg Oswald Admission Data Admit Date/Time: 10/19/19 23:31 Attending Provider: Gregg Oswald Admit Provider: Andres Vogt Primary Care Provider: Daniella Gill Other Providers: Rosalba Pickering ; Andres Vogt Other Interventions: Discharge Summary Assessment (RN) Last Done: 10/21/19 16:39 DC Date/Time DO NOT enter until pt leaves facility: 10/21/19 17:42 Coding Level of Care Code D/C Day Management >30 mins Diagnoses Acute cholecystitis K81.0 Hypokalemia E87.6 Obstructive cholestatic liver disease K76.89 Elevated blood pressure reading without diagnosis of hypertension R03.0
== END 2019-10-21 17:42 | disposition home or self-care (01) | DRG 419 ==
LOC: ED 20:00 → 2S 23:31 → SUATTDRO 23:31 → 2S 10-20 00:22